=== PATIENT | male | born 1935 | race Caucasian/White ===

== ENCOUNTER → 2023-05-10 | Outpatient (CLI) | payer MEDICARE, BC ==
[2023-05-10 14:05] LABS: African American GFR (CKD) 58 (>60 ml/min/1.73 sqM); Blood Urea Nitrogen 24 mg/dL (9-20); Non-African American GFR(CKD) 50 (>60 ml/min/1.73 sqM)
--- NOTE | 2023-05-10 15:06 | CT ---
CTA abdomen and pelvis HISTORY: AAA repair COMPARISON: None TECHNIQUE: Multiple axial images are obtained through the abdomen and pelvis findings uneventful admi nistration nonionic IV contrast. Pre-IV contrast images were obtained. 3-D reconstructions were gener ated and reviewed. 3-D processing was performed FINDINGS: Visualized lung bases are clear. There are no gallstones or renal calcifications. There is an aortic stent graft which appears to be in satisfactory position. There is no evidence of aneurysmal leak. There is no retroperitoneal adenopathy or hemorrhage. There is no solid renal mass or hydronephrosis. There is no focal mass or organomegaly involving the liver, pancreas, spleen or adrenal glands. The bowel loops are normal in caliber and there is no inflammation or obstruction. There is no free i ntraperitoneal air or fluid. There is no pelvic mass, free fluid, abscess or adenopathy. There is mild prostatic hypertrophy. The osseous structures are intact. IMPRESSION: 1. Endovascular aortic repair with stent graft. There is no evidence of aneurysm leak. 2. Mild to moderate prostatic hypertrophy. 3. No other significant abnormality seen.
== END | disposition home or self-care (01) ==
LOC: RADCTMAIN 12:58
PROVIDERS: ATTEND Surgery
DX: I71.02 Dissection of abdominal aorta (principal); N40.0 Benign prostatic hyperplasia without lower urinary tract symptoms; Z95.828 Presence of other vascular implants and grafts
CPT/HCPCS: 82565; 84520; 36415; 74174; Q9967